=== PATIENT | male | born 1970 | race Caucasian/White ===

== ENCOUNTER 2018-10-17 22:40 | Emergency (ER) | payer BC ==
[~2018-10-17] VITALS: Ht 172.7 cm; Wt 66.0 kg
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
[2018-10-17] MEDS ORDERED: LISI5TAB7 PO (22:54)
--- NOTE | 2018-10-17 23:00 | NUR ---
Noemy SHEPHERD, at bedside to evaluate pt.
--- NOTE | 2018-10-17 23:09 | NUR ---
Jeronimo jeffries in [facility] - 10/17/18 at 2313 by ZHAO Pt to imaging, with tech, via mario.
--- NOTE | 2018-10-17 23:10 | NUR ---
Dr. Morrow at bedside to evaluate pt.
--- NOTE | 2018-10-17 23:24 | NUR ---
Pt in imaging.
[2018-10-17] MEDS ORDERED: DIPH,PERTUSS(ACELL),TET VAC/PF 0.5 ML IM-VACC ONE ×2 (23:30→23:44)
--- NOTE | 2018-10-17 23:31 | NUR ---
Pt back to room from imaging.
--- NOTE | 2018-10-17 23:48 | NUR ---
Pt medicated per MAR.
--- NOTE | 2018-10-18 00:40 | NUR ---
EDT at bedside to irrigate wound.
--- NOTE | 2018-10-18 01:49 | NUR ---
Pt ambulated to the bathroom, steady gait. Pt states "I think I'm ready to go." Pt advised that this RN will return with his d/c paperwork.
[2018-10-18 02:00] VITALS: BP 131/84
--- NOTE | 2018-10-18 02:02 | NUR ---
Patient/Caregiver given discharge instructions and they have confirmed that they understand the instructions. Patient ambulatory with steady gait.
== END 2018-10-18 02:03 | disposition home or self-care (01) ==
LOC: ED 10-18 00:36
DX: S06.329A Contusion and laceration of left cerebrum with loss of consciousness of unspecified duration, initial encounter (principal); S01.01XA Laceration without foreign body of scalp, initial encounter; F10.120 Alcohol abuse with intoxication, uncomplicated; I10 Essential (primary) hypertension; M54.2 Cervicalgia; W19.XXXA Unspecified fall, initial encounter; Y93.89 Activity, other specified; Y92.59 Other trade areas as the place of occurrence of the external cause; Y99.8 Other external cause status
CPT/HCPCS: 12032; 70450; 72125; 90471; 90715; 99285

== ENCOUNTER 2018-10-25 14:13 | Emergency (ER) | payer BC ==
[~2018-10-25] VITALS: Ht 172.7 cm; Wt 67.4 kg
[~2018-10-25 14:13] MED LIST: LISI5TAB7 PO
[2018-10-25 14:17] VITALS: BP 168/111
--- NOTE | 2018-10-25 14:47 | NUR ---
Patient/Caregiver given discharge instructions and they have confirmed that they understand the instructions. Patient ambulatory with steady gait.
== END 2018-10-25 14:48 | disposition home or self-care (01) ==
LOC: ED 14:40
DX: S01.01XD Laceration without foreign body of scalp, subsequent encounter (principal); X58.XXXD Exposure to other specified factors, subsequent encounter
CPT/HCPCS: 99281

== ENCOUNTER 2020-12-02 22:33 | Emergency (ER) | payer BC ==
[~2020-12-02] VITALS: Ht 172.7 cm; Wt 67.4 kg
[2020-12-02] MEDS ORDERED: IBUPROFEN 600 MG TABLET ONE (23:30)
[2020-12-02] MEDS ORDERED: IBUPROFEN 600 MG TABLET PO ONE (23:30)
[2020-12-02] MEDS ORDERED: HYDROcodone/APAP 5/325 TABLET ONE (23:30)
[2020-12-02] MEDS ORDERED: HYDROcodone/APAP 5/325 TABLET PO ONE (23:30)
[2020-12-02 23:34] LABS: ALANINE AMINOTRANSFERASE 98 U/L (12-78); ALBUMIN 3.9 g/dL (3.4-5.0); ANION GAP 9 mmol/L (5-15); CALCIUM 8.3 mg/dL (8.5-10.1); CHLORIDE 102 mmol/L (98-107); CREATININE 0.88 mg/dL (0.7-1.3)
--- NOTE | 2020-12-02 23:35 | NUR ---
Task RN: medicated patient per mar.
[2020-12-02 23:37] LABS: ALKALINE PHOSPHATASE 115 U/L (45-117); BILIRUBIN,TOTAL 1.1 mg/dL (0.2-1.0)
[2020-12-02 23:46] VITALS: BP 143/99
[2020-12-02 23:51] LABS: BASOPHILS % (AUTO) 1 % (0-1); EOSINOPHILS % (AUTO) 3 % (1-7); LYMPHOCYTES % (AUTO) 35 % (22-44); MEAN CORPUSCULAR HEMOGLOBIN 36.7 pg (27.5-34.5); MEAN CORPUSCULAR HGB CONC 35.2 g/dL (33.2-36.2); MEAN PLATELET VOLUME 8.4 fL (7.4-10.4); MONOCYTES % (AUTO) 12 % (2-9); NEUTROPHILS % (AUTO) 49 % (42-75); PLATELET COUNT 205 x10^3/uL (130-400); RED BLOOD COUNT 4.36 x10^6/uL (4.38-5.82); RED CELL DISTRIBUTION WIDTH 12.8 % (9.4-14.8)
[2020-12-02 23:55] LABS: MICROSCOPIC NOT IND
== END 2020-12-03 00:20 | disposition home or self-care (01) ==
LOC: ED 23:50
DX: S39.012A Strain of muscle, fascia and tendon of lower back, initial encounter (principal); R11.0 Nausea; F10.220 Alcohol dependence with intoxication, uncomplicated; I10 Essential (primary) hypertension; Y90.0 Blood alcohol level of less than 20 mg/100 ml; X58.XXXA Exposure to other specified factors, initial encounter; Y93.89 Activity, other specified; Y92.89 Other specified places as the place of occurrence of the external cause; Y99.8 Other external cause status
CPT/HCPCS: 36415; 80053; 80320; 81003; 83690; 85025; 99283; G0480